=== PATIENT | male | born 1965 | race Native Hawaiian/Other Pacific Islander ===

== ENCOUNTER 2017-09-08 09:07 | Emergency (ER) | payer BC ==
[~2017-09-08] VITALS: Ht 190.5 cm; Wt 91.8 kg
[~2017-09-08 09:07] MED LIST: PERC10TA27 PO
[2017-09-08 09:13] VITALS: BP 133/67; PULSE 69; RESP 18; TEMP 98.4; O2SAT 100
--- NOTE | 2017-09-08 09:43 | PD ---
HPI Chief Complaint: Skin Problem Time Seen by Provider: 09:40 Travel History International Travel<30 days: No Contact w/Intl Traveler<30days: No Traveled to known affect area: No History of Present Illness HPI Patient presents with concerns of a lemon tree thorn in his right first finger at the PIP joint. Reports tetanus is up-to-date. Denies any nausea vomiting diarrhea or fever. Denies any chest pain shortness of breath urinary or bowel symptoms. PFSH Past Medical History Cancer: No Cardiovascular Problems: No Diabetes: No Diminished Hearing: No Diverticulitis: Yes Endocrine: No Gastrointestinal Disorders: Yes (DIVERTICULTIS) GERD: Yes Genitourinary: No Hepatitis: No Hiatal Hernia: No Immune Disorder: No Musculoskeletal: Yes (CHRONIC BACK PAIN) Neurologic: No Psychiatric: No Reproductive: No Respiratory: No Thyroid Disease: No Tetanus Vaccination: < 5 Years ?: Not Past Surgical History Abdominal Surgery: Yes (01/01 EXP LAP COLOSTOMY/ REVERSED) Body Medical Devices: COLOSTOMY Other Surgery: Yes Social History Alcohol Use: No Tobacco Use: Yes (01/19 PPD) Substance Use: No Allergies-Medications (Allergen,Severity, Reaction): Coded Allergies: No Known Allergies (Unverified , 09/08/17) Reported Meds & Prescriptions Reported Meds & Active Scripts Active No Active Prescriptions or Reported Medications Review of Systems General / Constitutional: No: Fever Eyes: No: Visual changes HENT: No: Headaches Cardiovascular: No: Chest Pain or Discomfort Respiratory: No: Shortness of Breath Gastrointestinal: No: Abdominal Pain Genitourinary: No: Dysuria Musculoskeletal: No: Pain Skin: No Rash Neurologic: No: Weakness Psychiatric: No: Depression Endocrine: No: Polydipsia Hematologic/Lymphatic: No: Easy Bruising Physical Exam Narrative GENERAL: Well-nourished, well-developed patient. SKIN: Focused skin assessment warm/dry. HEAD: Normocephalic. EYES: No scleral icterus. No injection or drainage. NECK: Supple, trachea midline. No JVD or lymphadenopathy. CARDIOVASCULAR: Regular rate and rhythm without murmurs, gallops, or rubs. RESPIRATORY: Breath sounds equal bilaterally. No accessory muscle use. GASTROINTESTINAL: Abdomen soft, non-tender, nondistended. MUSCULOSKELETAL: No cyanosis, or edema. BACK: Nontender without obvious deformity. No CVA tenderness. Deamination of the right first finger reveals a possible puncture wound over the PIP joint dorsal aspect with some swelling of the finger. No erythema or specific cellulitic change. Data Data Last Documented VS Vital Signs Date Time Temp Pulse Resp B/P (MAP) Pulse Ox O2 Delivery O2 Flow Rate FiO2 09/08/17 09:13 98.4 69 18 133/67 (89) 100 Orders Orders Finger ([id number]) (09/08/17 ) Lidocaine 1% Inj (50 Ml) (Xylocaine 1% I (09/08/17 10:15) MDM Medical Decision Making Medical Screen Exam Complete: Yes Emergency Medical Condition: Yes Differential Diagnosis Foreign body, abrasion, cellulitis Narrative Course Assessment and plan discussed with patient and at bedside. Last 72 hours Impressions Finger X-Ray 09/08/17 0000 Signed Impressions: Service Date/Time: Friday, September 08, 2017 09:46 - CONCLUSION: Possible small 2 mm long foreign body at the dorsal PIP region only seen on the lateral view. This should be correlated if this is a potential site of injury. No other potential foreign body is seen. Brendan Salas MD Procedures Procedure Narrative Right first Finger was cleaned with Betadine and anesthetized with 2 cc of 1% lidocaine without epinephrine. A 0.5 cm incision was made on the medial aspect of the finger and investigated without finding. An additional 0.5 cm incision was made over the dorsal aspect of the knuckle with investigation and finding of a 2-3 mm foreign body/thorn. Each incision was closed with a single interrupted stitch with 3. 0 Prolene to control bleeding. Anabiotic ointment and sterile dressing applied. Patient tolerated procedure well. Suture removal 7-10 days. Diagnosis Primary Impression: Foreign body (FB) in soft tissue Patient Instructions: General Instructions Additional Instructions: Encouraged antibacterial soap and water 2 times per day without the patient up and about equipment. Suture removal 7-10 days. Follow-up with PCP. Oral antibiotics as prescribed. Return to emergency with any onset of new symptoms. Motrin or Tylenol for pain. Med/Other Pt SpecificInfo: Prescription(s) given Scripts Cephalexin (Keflex) 500 Mg Cap 500 MG PO Q12H for Infection for 7 Days, #14 CAP 0 Refills Prov: Oscar Ron MD 09/08/17 Disposition: 01 DISCHARGE HOME Condition: Good Oscar Ron MD Sep 08, 2017 09:43
--- NOTE | 2017-09-08 10:07 | RADRPT ---
EXAM DATE/TIME: 09/08/2017 09:46 [facility] COMPARISON: No previous studies available for comparison. INDICATIONS : States posssible wood splinter in right index finger MEDICAL HISTORY : None. SURGICAL HISTORY : None. ENCOUNTER: Initial ACUITY: 2 days PAIN SCORE: 10/10 LOCATION: Right index finger FINDINGS: Examination of the second digit of the right hand demonstrates no evidence of fracture or dislocation . The soft tissues are intact. On the lateral view, there is a 2 mm minimal area of linear increased density seen over the dorsal PIP region. If this is the region of concern, this may represent a smal l splinter. CONCLUSION: Possible small 2 mm long foreign body at the dorsal PIP region only seen on the lateral view. This sh ould be correlated if this is a potential site of injury. No other potential foreign body is seen. Brendan Salas MD on September 08, 2017 at 10:02 Board Certified Radiologist. This report was verified electronically.
[2017-09-08] MEDS ORDERED: LIDOCAINE HCL 1% 50 ML VIAL INFIL ONE (10:15)
[2017-09-08] MEDS ORDERED: CEPH-460 PO (10:44)
== END 2017-09-08 10:55 | disposition home or self-care (01) ==
LOC: PHEFT 09:07
DX: M79.5 Residual foreign body in soft tissue (principal)
CPT/HCPCS: 26080; 73140